=== PATIENT | male | born 1995 | race Caucasian/White ===

== ENCOUNTER 2021-05-04 10:04 | Emergency (ER) | payer SELFPAY ==
[~2021-05-04] VITALS: Ht 172.7 cm; Wt 67.6 kg
[2021-05-04] MEDS ORDERED: IV NS 0.9% 1,000 ML BAG IV ONE (10:30)
[2021-05-04 10:40] LABS: BASOPHILS # (AUTO) 0.1 K/uL (0.0-0.2); BASOPHILS % (AUTO) 0.8 % (0.0-2.0); EOSINOPHILS % (AUTO) 2.5 % (0.0-6.0); HEMATOCRIT 36 % (39-51); HEMOGLOBIN 12.4 g/dL (13.5-17.5); LYMPHOCYTES # (AUTO) 2.3 K/uL (0.8-4.8); LYMPHOCYTES % (AUTO) 34.5 % (20.0-44.0); MEAN CORPUSCULAR HGB CONC 35 g/dl (31.0-36.0); MEAN CORPUSCULAR VOLUME 87 fL (80-96); MONOCYTES # (AUTO) 0.5 K/uL (0.1-1.30); MONOCYTES % (AUTO) 7.4 % (2.0-12.0); NEUTROPHILS # (AUTO) 3.6 K/uL (1.8-8.9); NEUTROPHILS % (AUTO) 54.8 % (43.0-81.0); PLATELET COUNT (AUTO) 330 K/uL (150-450); WHITE BLOOD COUNT (AUTO) 6.7 K/uL (4.3-11.0)
[2021-05-04 10:48] LABS: CALCIUM, SERUM 8.9 mg/dL (8.5-10.1); CARBON DIOXIDE 29 mmol/L (21-32); CHLORIDE 105 mmol/L (98-107); CREATININE 0.8 mg/dL (0.6-1.3); GLUCOSE 89 mg/dL (74-106); POTASSIUM 3.9 mmol/L (3.5-5.1); SODIUM SERUM 143 mmol/L (136-145); UREA NITROGEN, BLOOD 26 mg/dL (7-18)
[2021-05-04 10:53] LABS: ALANINE AMINOTRANSFERASE 26 U/L (12-78); ALBUMIN 3.4 g/dL (3.4-5.0); ALCOHOL, BLOOD < 3 mg/dL (0-0); ALKALINE PHOSPHATASE 79 U/L (46-116); ASPARTATE AMINOTRANSFERASE 21 U/L (15-37); BILIRUBIN,DIRECT 0.1 mg/dL (0.0-0.2); BILIRUBIN,TOTAL 0.2 mg/dL (0.2-1.0); TOTAL PROTEIN, SERUM 6.6 g/dL (6.4-8.2)
[2021-05-04 10:54] LABS: ACETAMINOPHEN 0 ug/ml (10-30)
[2021-05-04 11:22] LABS: SERUM AMMONIA 30 umol/L (11-32)
--- NOTE | 2021-05-04 11:25 | NUR ---
PT RECEIVED ON BED WITH EYES CLOSE, DIFFICULT TO ARROUSE. PT WOOULD OPEN HIS EYES BUT THEN FALLS BACK TO SLEEP RIGHT AWAY. PT ON MONITOR.
--- NOTE | 2021-05-04 11:29 | NUR ---
urine collected via in and out cath with strict sterile technique observed during procedure and sent to lab.
--- NOTE | 2021-05-04 13:02 | NUR ---
PT IN BED SLEEPING. NAD NOTED
[2021-05-04 13:09] LABS: THYROID STIMULATING HORMONE 0.691 uIU/mL (0.358-3.74)
--- NOTE | 2021-05-04 15:19 | NUR ---
URINE RECOLLECTED ONCE AGAIN. THIOS TIME IS IS MORE COOPERATIVE TO BE ABLE TO URINATE. URINE SENT TO LAB
[2021-05-04 15:27] LABS: BILIRUBIN,URINE Negative (NEGATIVE); COLOR,URINE YELLOW (YELLOW); LEUKOCYTE ESTERASE ,URINE Negative (NEGATIVE); NITRITE, URINE Negative (NEGATIVE); PROTEIN,URINE Negative (NEGATIVE); UGLUCOSE Negative (NEGATIVE); UROBILINOGEN,URINE 0.2 EU/dL (0.2)
[2021-05-04 15:39] LABS: BACTERIA,URINE Few /HPF (None Seen); SQUAMOUS EPITHELIAL CELL,UR Few /HPF (None Seen)
--- NOTE | 2021-05-04 21:20 | NUR ---
PT WAS BEING DISCHARGE, PT WAS VERY RUDE, POSING UP AND THREATENING THE SITTER. [employer] HAPPENS TO BE AT THE NEXT BED TALKING TO ANOTHER PT AND ESCORTED THE PT OUT OF THE PREMISES. DISCHARGE INSTRUCTION GIVEN. PT IS AMBULATORY ON STEADY GAIT
--- NOTE | 2021-05-04 21:20 | NUR ---
Patient discharged to home in stable condition. Written and verbal after care instructions given. Patient verbalizes understanding of instruction.IV removed. Catheter intact and site benign. Pressure and 4x4 applied to site. No bleeding noted. Pt ambulatory with a steady gait
--- NOTE | 2021-05-04 21:21 | NUR ---
PT WAS NOOT ABLE TO SIGN ACI AND HOMELESS DISCHARGE BECAUSE HE GOT ESCORTED BY THE SIGNALS INTELLIGENCE ANALYST. PT DID RECEIVE HIS ACI.
[2021-05-04 21:31] VITALS: BP 122/66
== END 2021-05-04 21:34 | disposition home or self-care (01) ==
LOC: ER 10:09
DX: G93.40 Encephalopathy, unspecified (principal); F15.10 Other stimulant abuse, uncomplicated; F12.10 Cannabis abuse, uncomplicated; R41.0 Disorientation, unspecified; R00.1 Bradycardia, unspecified
CPT/HCPCS: 36415; 70450; 71045; 80048; 80076; 80143; 80307; 80320; 81001; 82140; 82962; 84443; 85025; 93005; 96360; 99285; J7030 ×2; G0480